=== PATIENT | female | born 1990 | race Caucasian/White ===

== ENCOUNTER 2021-11-26 04:09 | Outpatient (CLI) | payer OTHER, SELFPAY ==
[2021-11-26 21:51] LABS: HCG Beta,Quant Preg 50 mIU/mL (<5)
== END 2021-11-26 04:10 | disposition home or self-care (01) ==
LOC: LBO 04:09
PROVIDERS: Visit Provider Advanced Practice Midwife
DX: Z32.01 Encounter for pregnancy test, result positive (principal); Z3A.01 Less than 8 weeks gestation of pregnancy
CPT/HCPCS: 36415; 86850; 86900; 86901; 84702

== ENCOUNTER 2021-11-28 03:11 | Outpatient (CLI) | payer OTHER, SELFPAY ==
[2021-11-28 22:37] LABS: HCG Beta,Quant Preg 96 mIU/mL (<5)
== END 2021-11-28 03:12 | disposition home or self-care (01) ==
LOC: LBO 03:11
PROVIDERS: Visit Provider Advanced Practice Midwife
DX: Z32.01 Encounter for pregnancy test, result positive (principal)
CPT/HCPCS: 36415; 84702

== ENCOUNTER 2022-04-14 13:48 | Emergency (ER) | payer OTHER, SELFPAY ==
[2022-04-14] VITALS (33 sets, daily range): BP systolic 86–115; BP diastolic 42–88; PULSE 84–126; RESP 13–21; TEMP 36.6; O2SAT 97–100
--- NOTE | 2022-04-14 14:00 | RT.EKG_ITS ---
APPROVED REPORT Exam: Resting ECG Reason for Exam: SYNCOPE Patient Location: E HR:96 bpm ECG Measurements Heart Rate 96 AXIS HI 142 P 55 QRSd 87 QRS 54 QT 353 T 41 QTc 445 Conclusion Sinus rhythm...normal P axis, V-rate 60- 99
[2022-04-14 15:13] LABS: Abs Immature Grans 0.07 10^3/uL (0.0-0.06); Absolute Basophil Count 0.04 10^3/uL (0.0-0.2); Absolute Eosinophil Count 0.06 10^3/uL (0.0-0.7); Basophils % 0.3; Eosinophils % 0.4; HCT 29.1 % (36.0-46.0); HGB 9.6 g/dL (11.2-15.7); Immature Grans % 0.5; Lymphocytes % 10.4; MCH 28.9 pg (27.0-33.0); MCV 88 fL (80-95); MPV 9.7 fL (8.0-11.0); Monocytes % 4.9; Neutrophils % 83.5; Platelet Count 348 10^3/uL (130-400); RBC 3.32 10^6/uL (3.93-5.22); RDW 12.9 % (11.7-14.6); RDW-SD 41.2 fL
[2022-04-14 15:14] LABS: Absolute Lymphocyte Count 1.44 10^3/uL (1.2-3.4); Absolute Monocyte Count 0.68 10^3/uL (0.1-0.8); Absolute Neutrophil Count 11.52 10^3/uL (1.2-6.7)
--- NOTE | 2022-04-14 15:41 | ED.GENADUL_ITS ---
Discharge Plan Discharge Details Chief Complaint: Dizzy/Sync Clinical Impression: Syncope Primary Care Provider: None,None ED Provider: Andrea Stevens Home Meds and New Rx's Prescriptions: No Action amitriptyline 75 mg tablet 75 mg PO DAILY Hold Instructions: Home Medication placed on hold at Doctor's office escitalopram oxalate [Lexapro] 10 mg tablet 10 mg PO DAILY Plus 29 mg iron- 1 mg tablet 1 tab PO DAILY Qty: 90 4RF Medical Decision Making 1600 --31-year-old G1, P0 at 24 weeks here after syncopal episode while at rest. Patient had similar syncopal episode about 1 month ago. 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 Patient is tachycardic on arrival. Normotensive. No leg swelling, calf tenderness, shortness of breath or chest pain. EKG was reviewed and interpreted by me: Please see report, sinus rhythm 96 bpm, normal axis, QTC 445, [place] interval 142, no signs of hypertrophic cardiomyopathy, WPW or Brugada. I have called [facility] transfer center to request transfer to obstetrical team at [facility] and awaiting callback. 1614 --I spoke with Dr. Davis, on-call orientor at [facility], discussed ED presentation and course, she recommends discussion with cardiology for potential transfer. Awaiting call back. Lab Data Lab results reviewed: Yes I reviewed the patient's lab results. Labs: Laboratory Tests Range/Units 04/14/22 04/14/22 15:02 15:02 WBC (4.4-10.8) 10^3/uL 13.80 H RBC (3.93-5.22) 10^6/uL 3.32 L Hgb (11.2-15.7) g/dL 9.6 L Hct (36.0-46.0) % 29.1 L MCV (80-95) fL 88 MCH (27.0-33.0) pg 28.9 MCHC (32.0-36.0) % 33.0 RDW (11.7-14.6) % 12.9 Plt Count (130-400) 10^3/uL 348 MPV (8.0-11.0) fL 9.7 Immature Gran % 0.5 Neutrophils % 83.5 Lymphocytes % 10.4 Monocytes % 4.9 Eosinophils % 0.4 Basophils % 0.3 Nucleated RBC % (0.0-0.3) % 0.0 Absolute Neutrophils (1.2-6.7) 10^3/uL 11.52 H Absolute Lymphocytes (1.2-3.4) 10^3/uL 1.44 Absolute Monocytes (0.1-0.8) 10^3/uL 0.68 Absolute Eosinophils (0.0-0.7) 10^3/uL 0.06 Absolute Basophils (0.0-0.2) 10^3/uL 0.04 Sodium (136-145) mmol/L 135 L Potassium (3.5-5.1) mmol/L 3.8 Chloride (98-107) mmol/L 102 Carbon Dioxide (21.0-32.0) mmol/L 25.0 Anion Gap (3-11) mmol/L 8.0 BUN (7-18) mg/dL 8 Creatinine (0.55-1.02) mg/dL 0.7 Est GFR (CKD-EPI 2020) (mL/min/1.73m2) 119.24 Glucose (74-106) mg/dL 85 Calcium (8.5-10.1) mg/dL 9.1 Magnesium (1.8-2.4) mg/dL 2.0 Total Bilirubin (0.2-1.0) mg/dL 0.4 AST (15-37) U/L 32 ALT (14-59) U/L 57 Alkaline Phosphatase (46-116) U/L 86 Troponin I (<or=60) ng/L < 50 Total Protein (6.4-8.2) g/dL 6.6 Albumin (3.4-5.0) g/dL 3.0 L TSH (0.36-3.74) uIU/mL 0.63 Sign Out Yes HPI General Mode of arrival: ambulatory . Date/Time Provider Initiated Documentation: 04/14/22 14:16 . Limitations to Documentation: no limitations . Information obtained by: patient . HPI Narrative: 31-year-old female at 24 weeks here with syncope. Patient notes she has a history of arrhythmia that was treated with ablation about 10 years ago in [place]. She was told at that time that she would likely need another ablation treatment in about 10 years. Patient states that today she was in a meeting and had a syncopal episode at 1130. No chest pain or shortness of breath. No leg swelling. Patient does note she had similar episode about 1 month ago while she was shopping. Patient is asymptomatic at this time. Related Data Home Medications Medication Instructions Recorded Confirmed amitriptyline 75 mg tablet 75 mg PO DAILY 11/25/21 04/14/22 escitalopram oxalate 10 mg tablet 10 mg PO DAILY 11/25/21 04/14/22 (Lexapro) vitamins with calcium 1 tab PO DAILY #90 tabs 11/25/21 04/14/22 no.72-iron 29 mg-folic acid 1 mg tablet ( Plus) Previous Rx's Medication Instructions Recorded vitamins with calcium 1 tab PO DAILY #90 tabs 11/25/21 no.72-iron 29 mg-folic acid 1 mg tablet ( Plus) Allergies Allergy/AdvReac Type Severity Reaction Status Date / Time No Known Allergies Allergy Verified 04/14/22 13:57 General Stated Complaint: Dizzy/Sync CHARLA: 3 Review of Systems All systems reviewed & are unremarkable except as noted in HPI and below Constitutional Constitutional: Denies fever(s) Cardiovascular Cardiovascular: Reports as per HPI and Denies dyspnea Comments: Patient does her heart rate is normally slightly elevated around 100 bpm Respiratory Respiratory: Denies dyspnea PFSH All Active Problems (Updated 04/14/22 @ 16:16 by Andrea Stevens MD) Syncope (Chronic) (Acute) Positive test (Acute) Medical History Ovarian cyst with Mirena in place. 2 large functional cysts on R ovary and 3 on L ovary. Pt removed Mirena IUD 04/01/16 and started on OCPs. Social History Smoking/Tobacco Use Status: Never Smoking risk assessment performed?: Yes Substance use type: does not use Do you feel safe at home: Yes Do you feel safe in your relationship?: Yes Exam Const General: cooperative and no acute distress HENMT Mouth: moist mucous membranes Eyes Conjunctivae: normal conjunctivae Sclera: normal sclerae Neck Neck: trachea midline and supple Resp Auscultation: clear to auscultation bilaterally, no rales, no rhonchi and no wheezes Cardio Rate: tachycardic (100) Rhythm: regular rhythm Heart Sounds: no murmurs GI Inspection: distended (Gravid abdomen) Palpation: soft, not firm, no guarding, no masses, not rigid and nontender Skin General skin exam: no rashes or lesions noted Neuro General: patient alert, patient awake and tone normal Extrem General: no calf tenderness and no edema Psych Appearance: grossly normal Mental Status: mental status grossly normal Speech and Movement: speech and movement normal Course Vital Signs Vital signs: Vital Signs Temperature 36.6 C 04/14/22 13:53 Pulse 104 H 04/14/22 13:53 Respiratory Rate 16 04/14/22 13:53 Blood Pressure 111/70 04/14/22 13:53 Pulse Oximetry 100 04/14/22 13:53 Temperature 36.6 C 04/14/22 13:53 Temperature Source Temporal Artery Scan 04/14/22 13:53 Pulse 104 H 04/14/22 13:53 Respiratory Rate 17 04/14/22 14:26 Respiratory Effort 04/14/22 14:26 Respiratory Depth Normal 04/14/22 14:26 Respiratory Pattern Normal 04/14/22 14:26 Blood Pressure 111/70 04/14/22 13:53 Blood Pressure Position Sitting 04/14/22 13:53 Pulse Oximetry 100 04/14/22 13:53 Oxygen Delivery Method Room Air 04/14/22 13:53 Oxygen Flow Rate 0 04/14/22 13:53 Pain Level 0 04/14/22 13:53 Lab/Test Results Lab/Test Results: Laboratory Tests Range/Units 04/14/22 15:02 WBC (4.4-10.8) 10^3/uL 13.80 H RBC (3.93-5.22) 10^6/uL 3.32 L Hgb (11.2-15.7) g/dL 9.6 L Hct (36.0-46.0) % 29.1 L MCV (80-95) fL 88 MCH (27.0-33.0) pg 28.9 MCHC (32.0-36.0) % 33.0 RDW (11.7-14.6) % 12.9 Plt Count (130-400) 10^3/uL 348 MPV (8.0-11.0) fL 9.7 Immature Gran % 0.5 Neutrophils % 83.5 Lymphocytes % 10.4 Monocytes % 4.9 Eosinophils % 0.4 Basophils % 0.3 Nucleated RBC % (0.0-0.3) % 0.0 Absolute Neutrophils (1.2-6.7) 10^3/uL 11.52 H Absolute Lymphocytes (1.2-3.4) 10^3/uL 1.44 Absolute Monocytes (0.1-0.8) 10^3/uL 0.68 Absolute Eosinophils (0.0-0.7) 10^3/uL 0.06 Absolute Basophils (0.0-0.2) 10^3/uL 0.04
[2022-04-14 15:42] LABS: ALT 57 U/L (14-59); AST 32 U/L (15-37); Alkaline Phosphatase 86 U/L (46-116); BUN 8 mg/dL (7-18); Bilirubin, Total 0.4 mg/dL (0.2-1.0); CREATININE 0.7 mg/dL (0.55-1.02); Calcium 9.1 mg/dL (8.5-10.1); Chloride 102 mmol/L (98-107); Estimated GFR 119.24 (mL/min/1.73m2); Glucose 85 mg/dL (74-106); Potassium 3.8 mmol/L (3.5-5.1); Sodium 135 mmol/L (136-145); TSH (W/Ref FT4) 0.63 uIU/mL (0.36-3.74); Total Protein 6.6 g/dL (6.4-8.2); Troponin I < 50 ng/L (<or=60)
[2022-04-14 18:20] LABS: COVID-19 PCR Negative (Negative); Influenza A PCR Negative (Negative); Influenza B PCR Negative (Negative); RSV PCR Negative (Negative)
[2022-04-14 18:22] LABS: Source Nasopharynx
--- NOTE | 2022-04-14 18:24 | ED.PROG_ITS ---
Date of service: 04/14/22 Time of Service: 16:30 Medical Decision Making 1630 -- please see Dr. Stevens's note for initial presentation, exam and plan. Case endorsed to follow-up with [facility] cardiology regarding plan. 1729 --patient excepted for transfer to [facility] --accepting physician OB Dr. Vicky Davis. And discussed with patient at bedside and she is declining transfer. Despite our efforts, the patient has decided to leave against medical advice. She has a normal mental status and full decisional capacity. The patient understands her condition and the risks of leaving [facility], including BUT NOT LIMITED TO permanent disability, , etc., and has had an opportunity to ask questions about her medical condition. The patient has been informed that she may return for care at any time, and has been referred to her local medical physician for follow up [facility]. Patient will call her produce associate at [facility] tomorrow. A 48-hour color television console monitor was ordered and will be placed by respiratory therapy prior to patient leaving. She was advised to call her PCP and produce associate tomorrow for follow-up. Discussed that she may need a color television console monitor of longer duration placed by her PCP or cardiology. Usual and customary return precautions given. 1914 --respiratory therapy called to state that they were unable to procure the order to place a monitor prior to patient leaving. An order for color television console monitor has been placed in ambulatory orders. Medical Records Medical records reviewed: Yes I reviewed the patient's medical records. Sign Out No Sign Out Sign Out Data: Sign Out Comment: Follow-up conversation with [facility] cardiology regarding potential transfer. Last updated by Andrea Stevens MD at 04/14/22 16:46 Discharge Plan Disposition Patient Disposition: Against Medical Advise Condition: Stable Discharge Details Clinical Impression: Syncope Primary Care Provider: None,None ED Provider: Theresa Azevedo Home Meds and New Rx's Prescriptions: Continued amitriptyline 75 mg tablet 75 mg PO DAILY Hold Instructions: Home Medication placed on hold at Doctor's office escitalopram oxalate [Lexapro] 10 mg tablet 10 mg PO DAILY Plus 29 mg iron- 1 mg tablet 1 tab PO DAILY Qty: 90 4RF Discharge Instructions Instructions: Syncope (ED) Additional Instructions: You are leaving the hospital AGAINST MEDICAL ADVICE. There is a increased risk of or disability to you and your fetus associated with delayed or incomplete diagnoses and treatment in the setting of an unknown and/or potential high risk cause for your fainting episode. It is recommended that you call your produce associate at [facility] tomorrow and for referral to cardiology for further evaluation of your fainting episode. An order for an outpatient color television console monitor has been placed. You will be contacted by the respiratory therapy department for scheduling for placement of this monitor. Follow-up with your primary care doctor in 1 week for reevaluation and for placement of a color television console monitor of longer duration if indicated. Return to the emergency department with any worsening or new concerning symptoms. Discharge Orders Other Ambulatory Orders: Holter Monitor (Routine) Timeframe: 1 Week Facility: [facility] - Location: Respiratory Therapy Ordered By: Theresa Azevedo Discharge Data Discharge Date/Time-TO BE ENTERED AT DEPARTURE: 04/14/22 19:30 Discharge Physician: Theresa Azevedo
--- NOTE | 2022-04-15 00:59 | NUR.NOTE ---
Requisition faxed to [facility] to have 48 hour holter monitor placed 04/14/22.Nursing Note:
== END 2022-04-14 19:30 | disposition left against medical advice (07) ==
PROVIDERS: Student in an Organized Health Care Education/Training Program; Emergency Provider Physician Assistant
DX: O26.892 Other specified pregnancy related conditions, second trimester (principal); R55 Syncope and collapse; Z3A.24 24 weeks gestation of pregnancy; Z53.29 Procedure and treatment not carried out because of patient's decision for other reasons; Z20.822 Contact with and (suspected) exposure to COVID-19
CPT/HCPCS: 36415; 80053; 87637; 93005; 99283; 83735; 84443; 84484; 85025; 93010; 93225; 99282

== ENCOUNTER 2022-05-21 19:14 | Outpatient (CLI) | payer OTHER, SELFPAY ==
[2022-05-21 17:10] LABS: ALT 54 U/L (14-59); AST 37 U/L (15-37); Albumin 2.5 g/dL (3.4-5.0); Alkaline Phosphatase 175 U/L (46-116); Bilirubin, Direct 0.1 mg/dL (0.0-0.2); Bilirubin, Total 0.4 mg/dL (0.2-1.0); Total Protein 6.5 g/dL (6.4-8.2)
[2022-05-24 11:26] LABS: Bile Acids, Total 22 mcmol/L (<=10)
== END 2022-05-21 19:15 | disposition home or self-care (01) ==
LOC: LBO 19:16
PROVIDERS: Visit Provider Advanced Practice Midwife
DX: Z34.93 Encounter for supervision of normal pregnancy, unspecified, third trimester (principal); Z3A.29 29 weeks gestation of pregnancy
CPT/HCPCS: 36415; 80076; 82239